=== PATIENT | female | born 1955 | race Caucasian/White ===

== ENCOUNTER 2020-05-26 05:00 | Emergency (ER) | payer MEDICARE, OTHER ==
[~2020-05-26] VITALS: Ht 167.2 cm; Wt 92.7 kg
[2020-05-26 05:12] VITALS: BP 174/78
--- NOTE | 2020-05-26 05:28 | ED Abdominal Pain ---
General Chief Complaint: Rect Problems Stated Complaint: RECAL BLEEDING Source of Information: Patient History of Present Illness Date Seen by Provider: May 26, 2020 Time Seen by Provider: 05:27 Initial Comments 64-year-old female presents with rectal bleeding which began this morning at 4 AM when she used the toilet. She states she had a bowel movement and noticed some blood streaks on it. She then went to bed and felt the urge to go again half hour later so she went to the restroom again and says there was a lot of blood made her concerned. It was described as bright red. She denies history of similar episodes, however 2 years ago she had a colonoscopy and she had colon polyps. Her mother had colon cancer. She denies any weight loss, change in bowel movement pattern, recent illness, fever or chills. Lightheadedness, dizziness, chest pain or shortness of air. Patient visiting her daughter here in [place] w plans to travel home to [place] today. Allergies and Home Medications Patient Home Medication List Home Medication List Reviewed: Yes Review of Systems Review of Systems Constitutional: No diaphoresis, No dizziness, No fever, No malaise, No weakness Respiratory: Denies Cough, Denies Shortness of Air, Denies SOA With Exertion, Denies SOA at Rest Cardiovascular: Denies Chest Pain, Denies Edema, Denies Lightheadedness, Denies Palpitations, Denies Syncope Gastrointestinal: See HPI; Denies Abdomen Distended, Denies Abdominal Pain; Blood Streaked Stools; Denies Constipated, Denies Diarrhea, Denies Nausea, Denies Poor Appetite, Denies Poor Fluid Intake; Rectal Bleeding; Denies Vomiting Musculoskeletal: No back pain, No joint pain Skin: No change in color, No rash Past Jmdphul-[id number]-Twoasx Hx Past Med/Social Hx: Reviewed Nursing Past Med/Soc Hx Patient Social History Alcohol Use: Denies Use Smoking Status: Never a Smoker Recent Hopitalizations: No Seasonal Allergies Seasonal Allergies: Yes Past Medical History Hysterectomy Respiratory: No Cardiac: Yes High Cholesterol, Hypertension Neurological: No Genitourinary: No Hemorrhoids, Polyps Musculoskeletal: No Endocrine: No HEENT: No Cancer: No Psychosocial: No Integumentary: No Blood Disorders: No Physical Exam Vital Signs Vital Signs - First Documented 05/26/20 05:12 Temp 37.0 Pulse 72 Resp 18 B/P (MAP) 174/78 (110) Pulse Ox 96 O2 Delivery Room Air Capillary Refill : Height/Weight/BMI Height: '" Weight: lbs. oz. kg; BMI Method: General Appearance: WD/WN, no apparent distress Respiratory: chest non-tender, lungs clear Cardiovascular: normal peripheral pulses, regular rate, rhythm, no JVD Gastrointestinal: normal bowel sounds, non tender, soft Progress/Results/Core Measures Results/Orders Lab Results Laboratory Tests Test 05/26/20 05:40 Range/Units White Blood Count 5.8 4.3-11.0 10^3/uL Red Blood Count 4.77 4.35-5.85 10^6/uL Hemoglobin 13.1 11.5-16.0 G/DL Hematocrit 40 35-52 % Mean Corpuscular Volume 85 80-99 FL Mean Corpuscular Hemoglobin 27 25-34 PG Mean Corpuscular Hemoglobin Concent 32 32-36 G/DL Red Cell Distribution Width 14.5 10.0-14.5 % Platelet Count 205 130-400 10^3/uL Mean Platelet Volume 10.6 H 7.4-10.4 FL Immature Granulocyte % (Auto) 0 % Neutrophils (%) (Auto) 60 42-75 % Lymphocytes (%) (Auto) 30 12-44 % Monocytes (%) (Auto) 6 0-12 % Eosinophils (%) (Auto) 4 0-10 % Basophils (%) (Auto) 1 0-10 % Neutrophils # (Auto) 3.5 1.8-7.8 X 10^3 Lymphocytes # (Auto) 1.7 1.0-4.0 X 10^3 Monocytes # (Auto) 0.3 0.0-1.0 X 10^3 Eosinophils # (Auto) 0.2 0.0-0.3 10^3/uL Basophils # (Auto) 0.0 0.0-0.1 10^3/uL Immature Granulocyte # (Auto) 0.0 0.0-0.1 10^3/uL My Orders Orders - PAM MEJIAS DO Cbc With Automated Diff (05/26/20 05:26) Vital Signs/I&O 05/26/20 05:12 Temp 37.0 Pulse 72 Resp 18 B/P (MAP) 174/78 (110) Pulse Ox 96 O2 Delivery Room Air Departure Impression Primary Impression: Rectal bleed Disposition: 01 HOME, SELF-CARE Condition: Stable Departure-Patient Inst. Decision time for Depature: 05:56 Referrals: NO,LOCAL PHYSICIAN (PCP/Family) Primary Care Physician Patient Instructions: Bloody Stools, Adult (DC) Add. Discharge Instructions: Follow up with your PCP next week (JOAQUIN Moscoso) regarding this mornings episode of bleeding. Go to the nearest ER for worsening symptoms. Do not take any aspirin or ibuprofen or naprosyn All discharge instructions reviewed with patient and/or family. Voiced understanding. PAM MEJIAS DO May 26, 2020 05:28
[2020-05-26 05:52] LABS: WHITE BLOOD COUNT 5.8 10^3/uL (4.3-11.0)
[2020-05-26 05:53] LABS: BASOPHILS % (AUTO) 1 % (0-10); EOSINOPHILS # (AUTO) 0.2 10^3/uL (0.0-0.3); EOSINOPHILS % (AUTO) 4 % (0-10); HEMATOCRIT 40 % (35-52); HEMOGLOBIN 13.1 G/DL (11.5-16.0); LYMPHOCYTES # (AUTO) 1.7 X 10^3 (1.0-4.0); LYMPHOCYTES % (AUTO) 30 % (12-44); MEAN CORPUSCULAR HEMOGLOBIN 27 PG (25-34); MEAN CORPUSCULAR HGB CONC 32 G/DL (32-36); MEAN CORPUSCULAR VOLUME 85 FL (80-99); MEAN PLATELET VOLUME 10.6 FL (7.4-10.4); MONOCYTES # (AUTO) 0.3 X 10^3 (0.0-1.0); MONOCYTES % (AUTO) 6 % (0-12); NEUTROPHILS # (AUTO) 3.5 X 10^3 (1.8-7.8); NEUTROPHILS % (AUTO) 60 % (42-75); PLATELET COUNT 205 10^3/uL (130-400)
== END 2020-05-26 06:02 | disposition home or self-care (01) ==
LOC: ER FS 05:06
DX: K62.5 Hemorrhage of anus and rectum (principal)
CPT/HCPCS: 36415; 85025; 99282